=== PATIENT | female | born 1990 | race African-American/Black ===

== ENCOUNTER 2016-11-18 17:31 | Emergency (ER) | payer OTHER ==
[~2016-11-18] VITALS: Ht 162.6 cm; Wt 53.5 kg
--- NOTE | ~2016-11-18 | EKG ---
[address] [address] ELECTROCARDIOGRAM REPORT Name: SUSIE DEAN Room #: [facility]#: [id number] Admission: 11/18/16 Attend Phys: Discharge: 11/18/16 Date of : 88 Report #: [id number] THIS REPORT FOR: //name// [facility] ED Test Date: 2016-11-18 Test Time: 17:33:25 Pat Name: SUSIE DEAN Department: Room: Gender: F Computer Engineering Technician: MAYLIN : 1990 Requested By: Radha Mcgrath Order Number: [id number] MD: Arnie Luna Measurements Intervals [place] Rate: 68 P: 108 [place]: 160 QRS: 90 QRSD: 66 T: 42 QT: 384 QTc: 409 Interpretive Statements Right and left arm electrode reversal, interpretation assumes no reversal Sinus rhythm Borderline right axis deviation Borderline T wave abnormalities No previous ECG available for comparison Electronically Signed On 11-18-2016 22:23:32 CDT by Arnie Luna [email or web address] <ELECTRONICALLY SIGNED> By: Arnie Luna MD 11/18/16 [id number] Arnie Luna MD /PATRICK
[~2016-11-18 17:31] MED LIST: ACETAMINOPHEN-120 ML PO; COLACE100 MG; FLAGYL500 MG PO; IRON TABLET1 EACH PO; IRON325 PO; MACROBID 100 M100 M1 PO; MYLANTA 12 OZ355 M1; NOHOMEMEDICATIONS; PREDNISONE50 MG PO; PRENATAL COMPL1 EACH PO; TRINATE TABLET1 TAB PO; ZOFRAN4 MG PO; ZPAK PO
[2016-11-18 18:38] LABS: ABSOLUTE NEUTROPHILS 3.6 thou/uL (1.4-8.2); BASOPHILS 0.7 % (0.0-2.0); EOSINOPHILS 1.5 % (0.0-3.0); HEMATOCRIT 36.1 % (37.0-47.0); HEMOGLOBIN 11.7 gm/dL (12.0-15.0); LYMPHOCYTES 28.3 % (24.0-44.0); MCH 24.4 pg (26.0-34.0); MCHC 32.4 g/dL (28.0-37.0); MCV 75.3 fL (80.0-100.0); MONOCYTES 8.9 % (1.0-8.0); PLATELET COUNT 284 thou/uL (150-400); POLYS 60.6 % (36.0-66.0); RBC 4.79 mil/uL (4.20-5.00); RDW 16.5 % (10.5-14.5)
[2016-11-18 18:42] LABS: CALCIUM 8.9 mg/dL (8.5-10.1); CREATININE 0.7 mg/dL (0.6-1.0); POTASSIUM 3.3 mmol/L (3.5-5.1)
[2016-11-18 18:46] LABS: MANUAL DIFF NO
[2016-11-18 18:48] LABS: ALBUMIN 4.1 g/dL (3.4-5.0); TOTAL BILIRUBIN 0.3 mg/dL (<0.1-1.0); TOTAL PROTEIN 8.2 g/dL (6.4-8.2)
[2016-11-18] MEDS ORDERED: NAPROSYN500 MG PO (19:19)
[2016-11-18] MEDS ORDERED: MOBIC7.5 MG PO (19:20)
[2016-11-18] MEDS ORDERED: ZANTAC 150MG T150 MG PO (19:22)
[2016-11-18 19:24] VITALS: BP 114/60
== END 2016-11-18 19:22 | disposition home or self-care (01) ==
LOC: ER 17:31
PROVIDERS: Nurse Practitioner Family
DX: R07.89 Other chest pain (principal); R10.13 Epigastric pain; Z86.2 Personal history of diseases of the blood and blood-forming organs and certain disorders involving the immune mechanism; Z88.0 Allergy status to penicillin; Z87.891 Personal history of nicotine dependence

== ENCOUNTER 2019-03-25 07:50 | Emergency (ER) | payer OTHER ==
[~2019-03-25] VITALS: Ht 157.5 cm; Wt 39.5 kg
[~2019-03-25 07:50] MED LIST changes: +MOBIC7.5 MG PO; +NAPROSYN500 MG PO; +ZANTAC 150MG T150 MG PO
[2019-03-25] MEDS ORDERED: CEPACOL SORE T1 EAC7 PO (08:52)
[2019-03-25 08:54] VITALS: BP 99/56
== END 2019-03-25 08:59 | disposition home or self-care (01) ==
LOC: ER 07:50
DX: J10.1 Influenza due to other identified influenza virus with other respiratory manifestations (principal); Z86.2 Personal history of diseases of the blood and blood-forming organs and certain disorders involving the immune mechanism; Z88.0 Allergy status to penicillin; Z87.891 Personal history of nicotine dependence